=== PATIENT | female | born 1985 | race American Indian/Alaskan Native ===

== ENCOUNTER 2018-11-01 14:56 | Inpatient (IN) | payer SELFPAY ==
[2018-11-01] MEDS ORDERED: SUBLIMAZE IV ONE (16:19)
[2018-11-01] MEDS ORDERED: CERVIDIL VG ONE (16:30)
[2018-11-01] MEDS: LACTATED RINGERS 1,000 ML IV SCH (16:53)
--- NOTE | 2018-11-01 17:33 | History and Physical Report ---
History of Present Illness Date of examination: 11/01/18 Date of admission: 11/01/18 14:56 Chief complaint: IOL for oigo hydramnios History of present illness: 33 Yo at 39+5 weeks here sent over from [facility] for Oligo. Patient is a [facility] patient with hx of GDM diet control. Patient has a hx of PTD abd previously had cerclage in 2013. Patient has declined procedure secondary to her paying out of pocket. 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 Past History Past Medical History: diabetes (GDM A1) Past Surgical History: other (cerclage) Family/Genetic History: none Social history: no significant social history, . denies: smoking, alcohol abuse - Obstetrical History Expected Date of Delivery: 11/03/18 Actual Gestation: 39 Week(s) 5 Day(s) : 5 Para: 3 Hx # Term Pregnancies: 1 Number of Pregnancies: 2 Spontaneous Abortions: 1 Induced : 0 Number of Living Children: 1 Medications and Allergies Allergies Allergy/AdvReac Type Severity Reaction Status Date / Time No Known Allergies Allergy Unverified 11/01/18 16:17 Active Meds: Active Medications Lactated Ringer's (Lactated Ringers) 1,000 mls @ 125 mls/hr IV DIRECT LIZ Last Admin: 11/01/18 16:53 Dose: 125 mls/hr Documented by: Review of Systems All systems: negative - Vital Signs Vital signs: Vital Signs Pulse BP 90 133/78 11/01/18 15:22 11/01/18 15:22 Temp Pulse Resp BP Pulse Ox 98.0 F 90 14 133/78 11/01/18 16:29 11/01/18 15:22 11/01/18 16:29 11/01/18 15:22 - Physical Exam Breasts: Positive: normal Cardiovascular: Regular rate, Normal S1 Abdomen: Positive: normal appearance, normal bowel sounds Genitourinary (Female): Positive: normal external genitalia, normal perenium Vagina: Positive: normal moisture Uterus: Positive: normal size, normal contour Anus/Rectum: Positive: normal perianal skin Extremities: Positive: normal Deep Tendon Reflex Grade: Normal +2 - Obstetrical FHR: category 1 Cervical Dilatation: 0 Cervical Effacement Percentage: 50 station: 4 Uterine Contraction Pattern: Irregular Uterine Tone Measurement Phase: Resting Uterine Contraction Intensity: Mild Results All other labs normal. Assessment and Plan A/P IUP 39+5 weeks GDM -diet controlled obesity oligo at 4cm IOL for Oligo at term unfavorable cervix GBS neg cervidil to initiate induction for start
[2018-11-01] MEDS ORDERED: PHENERGAN PO PRN (17:52)
[2018-11-01] MEDS ORDERED: NARCAN 0.4 MG/1 ML IV PRN (17:52)
[2018-11-01] MEDS ORDERED: ZOFRAN IV PRN (17:52)
[2018-11-01] MEDS ORDERED: MINERAL OIL PO PRN (17:52)
[2018-11-01] MEDS ORDERED: XYLOCAINE 2% INFILTRATI ONE (17:52)
[2018-11-01] MEDS ORDERED: STADOL IV PRN (17:52)
[2018-11-01] MEDS ORDERED: BRETHINE IVP PRN (17:52)
[2018-11-01] MEDS ORDERED: BRETHINE SUB-Q PRN (17:52)
[2018-11-01] MEDS ORDERED: AMBIEN PO PRN (17:56)
[2018-11-01] MEDS ORDERED: PITOCin/NS 30 UNIT/500ML 30 UNITS/500 ML BAG IV SCH ×2 (18:00)
[2018-11-01] MEDS ORDERED: LACTATED RINGERS 1,000 ML IV SCH (18:00)
[2018-11-01] MEDS ORDERED: PITOCin/NS 20 UNIT/1000ML DRIP 20 UNITS/1,000 ML BAG IV SCH (18:00)
[2018-11-01 19:02] LABS: Basophils % (Auto) 0.5 % (0.0-1.8); Eosinophils % (Auto) 0.4 % (0.0-4.3); Hematocrit 36.1 % (30.3-42.9); Hemoglobin 11.8 gm/dl (10.1-14.3); Lymphocytes # (Auto) 1.5 K/mm3 (1.2-5.4); Mean Corpuscular HGB Conc 33 % (30-34); Mean Corpuscular Volume 81 fl (79-97); Monocytes # (Auto) 0.7 K/mm3 (0.0-0.8); Monocytes % (Auto) 12.9 % (0.0-7.3); Platelet Count 199 K/mm3 (140-440); Red Blood Count 4.46 M/mm3 (3.65-5.03); Red Cell Distribution Width 16.9 % (13.2-15.2)
[2018-11-02] MEDS: LACTATED RINGERS 1,000 ML IV SCH (05:32)
[2018-11-02] MEDS ORDERED: PEPCID IV ONE ×2 (08:42→09:30)
[2018-11-02] MEDS ORDERED: BICITRA ONE (08:43)
[2018-11-02] MEDS ORDERED: BICITRA PO ONE ×2 (08:45→09:30)
[2018-11-02] MEDS ORDERED: REGLAN IV ONE (08:45)
--- NOTE | 2018-11-02 08:50 | Progress Note ---
Assessment and Plan A/P IUP 39+6 weeks GDM -diet controlled obesity oligo at 4cm IOL for Oligo at term unfavorable cervix GBS neg NRFHT withl late decles minimal variability despite induction with cervidil and pitocin intolerance to labor discussed r/b/a of csec which include bleeding infection damage to pelvic and non pelvic organs risk of blood clots, , pain , hysterectomy and will proceed with primary csec all questions answered Subjective - Subjective Date of service: 11/02/18 Principal diagnosis: IOL for oligo Interval history: 33 Yo at 39+5 weeks here sent over from [facility] for Oligo. Patient is a [facility] patient with hx of GDM diet control. Patient has a hx of PTD abd previously had cerclage in 2013. Patient has declined procedure secondary to her paying out of pocket. 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 Patient reports: movement normal, contractions, no new complaints, no loss of fluid, no vaginal bleeding Objective - Vital Signs Vital Signs: Vital Signs - 12hr 11/01/18 11/02/18 11/02/18 22:28 00:32 01:03 Temperature 98.2 F Pulse Rate 82 85 Respiratory 18 Rate Blood Pressure 128/67 136/67 11/02/18 11/02/18 11/02/18 01:32 02:02 02:32 Temperature Pulse Rate 81 81 78 Respiratory Rate Blood Pressure 143/79 131/75 128/62 11/02/18 11/02/18 11/02/18 02:34 03:03 03:32 Temperature Pulse Rate 74 77 82 Respiratory Rate Blood Pressure 124/61 119/58 128/74 11/02/18 11/02/18 11/02/18 05:26 05:32 06:32 Temperature Pulse Rate 80 71 68 Respiratory Rate Blood Pressure 123/60 110/57 118/59 11/02/18 11/02/18 11/02/18 07:18 07:19 07:49 Temperature 98.0 F Pulse Rate 77 67 Respiratory Rate Blood Pressure 127/67 114/57 11/02/18 08:18 Temperature Pulse Rate 75 Respiratory Rate Blood Pressure 122/65 - Exam Breasts: normal Cardiovascular: Regular rate, Normal S1 Lungs: Clear to auscultation, Normal air movement Abdomen: Present: normal appearance, soft, normal bowel sounds. Absent: distention, tenderness, guarding Vulva: both: normal Uterus: Present: normal, firm, fundal height above umbilicus FHR: category 2 Cervical Dilatation: 2 Cervical Effacement Percentage: 40 station: 3 Uterine Contraction Pattern: Irregular Uterine Tone Measurement Phase: Contraction Uterine Contraction Intensity: Mild - Labs Labs: Abnormal Labs 11/01/18 16:00 MCH 27 L RDW 16.9 H [place] % (Auto) 12.9 H Laboratory Results - last 24 hr 11/01/18 11/01/18 11/01/18 15:25 16:00 16:00 WBC 5.5 RBC 4.46 Hgb 11.8 Hct 36.1 MCV 81 MCH 27 L MCHC 33 RDW 16.9 H Plt Count 199 Lymph % (Auto) 28.0 [place] % (Auto) 12.9 H Eos % (Auto) 0.4 Baso % (Auto) 0.5 Lymph # 1.5 [place] # 0.7 Eos # 0.0 Baso # 0.0 Seg Neutrophils % 58.2 Seg Neutrophils # 3.2 POC Glucose 71 Blood Type A POSITIVE Antibody Screen Negative
[2018-11-02] MEDS ORDERED: BENADRYL IV PRN (08:52)
[2018-11-02] MEDS ORDERED: DILAUDID IV PRN (08:52)
[2018-11-02] MEDS ORDERED: NARCAN 0.4 MG/1 ML IV PRN ×2 (08:52→11:00)
[2018-11-02] MEDS ORDERED: PHENERGAN PR PRN (08:52)
[2018-11-02] MEDS ORDERED: ZOFRAN IV PRN (08:52)
[2018-11-02] MEDS ORDERED: PHENERGAN PO PRN (08:52)
--- NOTE | 2018-11-02 08:54 | Anesthesia Consultation ---
Anesthesia Consult and Med Hx - Airway Anesthetic Teeth Evaluation: Good ROM Head & Neck: Adequate Mental/Hyoid Distance: Adequate Mallampati Class: Class I Intubation Access Assessment: Good - Pulmonary Exam CTA: Yes - Cardiac Exam Cardiac Exam: RRR - Pre-Operative Health Status ASA Pre-Surgery Classification: ASA2 Proposed Anesthetic Plan: Spinal - Pulmonary Hx Asthma: No - Cardiovascular System Hx Hypertension: No - Central Nervous System Hx Seizures: No Hx Psychiatric Problems: No - Endocrine Hx Renal Disease: No Hx Hypothyroidism: No Hx Hyperthyroidism: No - Hematic Hx Anemia: No Hx Sickle Cell Disease: No
--- NOTE | 2018-11-02 08:55 | Anesthesia Day of Surgery ---
Anesthesia Day of Surgery - Day of Surgery Patient Examined: Yes Patient H&P Reviewed: Yes Patient is NPO: Yes Beta Blockers: No Cardiac Clearance: No Pulmonary Clearance: No Brandon's Test: N/A
[2018-11-02] MEDS ORDERED: LACTATED RINGERS 1,000 ML IV SCH (09:00)
[2018-11-02] MEDS ORDERED: REGLAN IV NR (09:00)
[2018-11-02] MEDS ORDERED: PITOCin/NS 20 UNIT/1000ML DRIP 20 UNITS/1,000 ML BAG IV SCH ×2 (09:00→11:00)
[2018-11-02] MEDS ORDERED: ANCEF/STERILE WATER 2 GM/20 ML 2 GM/20 ML SYRINGE IV NR (09:00)
[2018-11-02] MEDS ORDERED: SODIUM CHLORIDE FLUSH SYRINGE 10 ML IV NR ×2 (09:00→11:00)
[2018-11-02] MEDS ORDERED: ZOFRAN ONE (09:05)
[2018-11-02] MEDS ORDERED: SUBLIMAZE ONE (09:05)
[2018-11-02] MEDS ORDERED: NEO SYNEPHRINE/NS Syringe(OR USE) IV ONE (09:26)
[2018-11-02] MEDS ORDERED: LACTATED RINGERS 1,000 ML ONE (09:35)
[2018-11-02] MEDS ORDERED: TORADOL ONE (10:22)
--- NOTE | 2018-11-02 10:59 | Procedure Note ---
OB Delivery Note - Delivery Date of Delivery: 11/02/18 Surgeon: JAVIER FIELDS Estimated blood loss: 500cc - Section Preop diagnosis: nonreassuring FHR tracing Postop diagnosis: same section procedure: section Disposition: PACU Complications: none Narrative: see op note - Infant A at 1 minute: 8 at 5 minutes: 9 Gender: Female (5 pounds 15 oz)
[2018-11-02] MEDS ORDERED: LANSINOH TP PRN (11:00)
[2018-11-02] MEDS ORDERED: D5LR 1,000 ML IV SCH (11:00)
[2018-11-02] MEDS ORDERED: TUCKS PAD TP PRN (11:00)
[2018-11-02] MEDS ORDERED: TYLENOL PO PRN (11:00)
[2018-11-02] MEDS ORDERED: MYLICON PO PRN (11:00)
[2018-11-02] MEDS ORDERED: TORADOL IV PRN (11:00)
[2018-11-02] MEDS ORDERED: MORPHINE IV PRN (11:00)
[2018-11-02] MEDS ORDERED: NORCO 5/325 PO PRN (11:00)
--- NOTE | 2018-11-02 11:08 | Operative Report ---
Operative Report Operative Report: Date: 11/02/18 PREOPERATIVE DIAGNOSES: 1. Intrauterine at term. 2. NRFHT minimal variability and late decels POSTOPERATIVE DIAGNOSES: 1-2 james 3. nuchal cord SURGEON: Dr. Kacie Urbina MD PROCEDURE PERFORMED: Primary low-transverse section. ANESTHESIA: Epidural. ESTIMATED BLOOD LOSS: 500 mL. COMPLICATIONS: None. FINDINGS: Female in cephalic presentation, OP position, weight 5pounds 15 ounces. Apgars were 8 at 1 minute and 9 at 5 minutes. Normal uterus, tubes, and ovaries were noted. INDICATIONS: The patient is a 33-year-old 5, para 1 female, who presented to labor and delivery in early active labor at 40 and 6/7 weeks gestation. The patient progressed to 2 cm, at which time, Pitocin was started.She had variable and late decles with pitocin. Intolerance to labor. The procedure was described to the patient in detail including possible risks of bleeding, infection, injury to surrounding organs, and possible need for further surgery. Informed consent was obtained prior to proceeding with the procedure. PROCEDURE NOTE: The patient was taken to the operating room where epidural anesthesia was found to be adequate. The patient was prepped and draped in the usual sterile fashion in the dorsal supine position with a left-hamilton tilt. A Pfannenstiel skin incision was made with the scalpel and carried through to the underlying layer of fascia using the Bovie. The fascia was incised in the midline and extended laterally using Triana scissors. Baljeet clamps were used to elevate the superior aspect of the fascial incision, which was elevated, and the underlying rectus muscles were dissected off bluntly and using Triana scissors. Attention was then turned to the inferior aspect of the fascial incision, which in similar fashion was grasped with Baljeet clamps, elevated, and the underlying rectus muscles were dissected off bluntly and using Triana scissors. The rectus muscles were dissected in the midline. The peritoneum was bluntly dissected, entered, and extended superiorly and inferiorly with good visualization of the bladder. The bladder blade was inse rted. The vesicouterine peritoneum was identified with pickups and entered sharply using Metzenbaum scissors. This incision was extended laterally and the bladder flap was created digitally. The bladder blade was reinserted. The lower uterine segment was incised in a transverse fashion using the scalpel and extended using manual traction. Clear fluid was noted. The infant was subsequently delivered atraumatically. The nose and mouth were bulb suctioned. The cord was clamped and cut. The was subsequently handed to the awaiting nursery nurse. Next, cord blood was obtained per the patients request for cord blood donation, which took several minutes to perform. Subsequent to the collection of this blood, the placenta was removed spontaneously intact with a 3-vessel cord noted. The uterus was exteriorized and cleared of all clots and debris. The uterine incision was repaired in 2 layers using 0 chromic suture. Hemostasis was visualized. hemoblast given. The uterus was returned to the abdomen. Surgicel then placed. The pelvis was copiously irrigated. The uterine incision was reexamined and was noted to be hemostatic. The rectus muscles were reapproximated in the midline using 3-0 Vicryl. The fascia was closed with 0 Vicryl, the subcutaneous layer was closed with 3-0 plain gut, and the skin was closed with 4-0 alcon needle. Sponge, lap, and instrument counts were correct x2. The patient was stable at the completion of the procedure and was subsequently transferred to the recovery room in stable condition.
[2018-11-02] MEDS ORDERED: ANUCORT-HC PR PRN (12:00)
[2018-11-02 13:13] LABS: Hematocrit 32.4 % (30.3-42.9); Hemoglobin 10.5 gm/dl (10.1-14.3); Mean Corpuscular HGB Conc 32 % (30-34); Mean Corpuscular Volume 81 fl (79-97); Red Blood Count 3.97 M/mm3 (3.65-5.03); Red Cell Distribution Width 16.7 % (13.2-15.2)
[2018-11-02 13:14] LABS: Basophils % (Auto) 0.1 % (0.0-1.8); Lymphocytes # (Auto) 1.1 K/mm3 (1.2-5.4); Lymphocytes % (Auto) 13.8 % (13.4-35.0); Monocytes # (Auto) 0.5 K/mm3 (0.0-0.8); Platelet Count 177 K/mm3 (140-440)
[2018-11-02 13:25] LABS: INR 1.06 (0.87-1.13)
[2018-11-02 13:26] LABS: Partial Thromboplastin Time 25.1 Sec. (24.2-36.6)
--- NOTE | 2018-11-02 14:35 | Post Anesthesia Evaluation ---
- Post Anesthesia Evaluation Patient Participated: Yes Airway Patent: Yes Stable Respiratory Function: Yes Nausea/Vomiting: No Temp > 96.8F: Yes Pain Manageable: Yes Adequeate Hydration: Yes Anesthesia Complications: No Block Receding Appropriately: Yes Patient on Ventilator: No
[2018-11-02] MEDS: TORADOL IV PRN ×2 (16:33→22:30)
[2018-11-02] MEDS ORDERED: MILK OF MAGNESIA PO PRN (22:00)
[2018-11-02] MEDS ORDERED: SENOKOT PO PRN (22:00)
[2018-11-03 01:45] LABS: Hematocrit 25.8 % (30.3-42.9); Hemoglobin 8.5 gm/dl (10.1-14.3)
[2018-11-03] MEDS: TORADOL IV PRN (04:23)
[2018-11-03] MEDS: FEOSOL PO SCH ×3 (09:25→22:32)
[2018-11-03] MEDS: PERCOCET 5/325 PO PRN ×3 (09:25→22:32)
[2018-11-03] MEDS: IBUPROFEN PO PRN ×3 (09:25→22:32)
--- NOTE | 2018-11-03 10:54 | Progress Note ---
Assessment and Plan A: POD1 s/p primary LTCS without complication. Anemia due to blood loss Blood glucose wnl P: Continue current care Iron supplementation Anticipate d/c on POD3 Subjective - Subjective Date of service: 11/03/18 Principal diagnosis: Post op day 1 Interval history: Pt is post op day s/p primary c/s for NRFHT. IOL for GDM and oligo. Patient reports: appetite normal, voiding normally, pain well controlled, flatus, ambulating normally Arnold: doing well Objective - Vital Signs Latest vital signs: Vital Signs Temp Pulse Resp BP BP Pulse Ox 11/03/18 08:09 97.5 F L 100 H 18 129/76 98 11/03/18 04:23 22 11/03/18 00:32 98.6 F 99 H 18 124/75 98 11/03/18 00:00 98.7 F 78 18 120/78 11/02/18 22:30 20 11/02/18 19:30 98.7 F 69 16 129/71 11/02/18 16:33 18 11/02/18 16:21 97.6 F 87 18 136/69 11/02/18 12:20 98.1 F 84 18 130/70 99 11/02/18 11:50 97.8 F 66 18 123/76 99 11/02/18 11:35 73 19 122/65 99 11/02/18 11:20 63 20 127/68 99 11/02/18 11:05 61 17 123/73 100 11/02/18 11:00 58 L 18 127/66 99 11/02/18 10:55 97.7 F 60 22 133/69 99 Intake and Output 11/02/18 11/03/18 11/03/18 23:59 07:59 15:59 Intake Total 360 600 Output Total 800 Balance -440 600 Intake: Oral 360 Intake, Free Water 600 Output: Urine 800 Indwelling Catheter 800 Other: Total, Intake Amount 360 Total, Output Amount 800 - Exam Breasts: Present: deferred, Cardiovascular: Present: Regular rate, Normal S1, Normal S2, No murmurs Lungs: Present: Clear to auscultation, Normal air movement Abdomen: Present: normal appearance, soft, normal bowel sounds Uterus: Present: normal, firm, fundal height below umbilicus Extremities: Present: normal Incision: Present: normal, dry, intact - Labs Labs: Abnormal lab results 11/02/18 11/03/18 Range/Units 12:59 00:37 Hgb 8.5 L (10.1-14.3) gm/dl Hct 25.8 L D (30.3-42.9) % MCH 26 L (28-32) pg RDW 16.7 H (13.2-15.2) % Lymph # 1.1 L (1.2-5.4) K/mm3 Seg Neutrophils % 80.1 H (40.0-70.0) %
[2018-11-03] MEDS ORDERED: M-M-R II VACCINE SUB-Q ONE (11:01)
[2018-11-03] MEDS ORDERED: BOOSTRIX IM ONE (11:01)
--- NOTE | 2018-11-04 08:06 | Progress Note ---
Assessment and Plan A: Post op day 2 s/p primary LTCS for NRFHT Anemia due to blood loss Passing flatus, VSS P: Continue current care. Iron supplementation. Anticipate d/c tomorrow. Subjective - Subjective Date of service: 11/04/18 Principal diagnosis: Post op day 2 Interval history: Pt is post op day 2 s/p primary c/s for NRFHT. IOL for GDM and oligo. She is feeling well, BG is well-controlled. Patient reports: appetite normal, voiding normally, pain well controlled, flatus, ambulating normally : doing well Objective - Vital Signs Latest vital signs: Vital Signs Temp Pulse Resp BP Pulse Ox 11/04/18 00:00 98.2 F 98 H 18 126/63 11/03/18 23:32 18 11/03/18 22:32 18 11/03/18 16:35 98.1 F 98 H 18 124/61 99 11/03/18 08:09 97.5 F L 100 H 18 129/76 98 Intake and Output 11/03/18 11/04/18 11/04/18 23:59 07:59 15:59 Intake Total 240 480 Balance 240 480 Intake: Oral 240 480 Other: Total, Intake Amount 240 480 # Voids Indwelling Catheter 1 2 - Exam Breasts: Present: normal, pain (Nipples sore) Cardiovascular: Present: Regular rate, Normal S1, Normal S2, No murmurs Lungs: Present: Clear to auscultation, Normal air movement Abdomen: Present: normal appearance, soft, normal bowel sounds Uterus: Present: normal, firm, fundal height at umbilicus Extremities: Present: normal, edema (Feet 1+) Incision: Present: normal, dry, intact
--- NOTE | 2018-11-04 08:11 | Discharge Summary ---
Providers - Providers Date of Admission: 11/01/18 14:56 Date of discharge: 11/05/18 Attending physician: JAVIER FIELDS MD Primary care physician: JAVIER FIELDS MD Hospitalization Reason for admission: induction of labor Delivery: Procedure: section, primary low transverse Incision: normal, dry, intact Other procedures: none complications: none Discharge diagnosis: IUP at term delivered baby: female Hospital course: Pt had an uncomplicated hospital course. Anemia was noted on post op day 1, and iron supplementation was initiated. Condition at discharge: Good Disposition: DC-01 TO HOME OR SELFCARE - Discharge Diagnoses (1) delivery delivered Status: Acute (2) Gestational diabetes mellitus, delivered Status: Acute Comment: Diet controlled Plan - Provider Discharge Summary Activity: no sex for 6 weeks, no heavy lifting 4 weeks, no strenuous exercise Diet: routine Instructions: routine Additional instructions: [] Smoking cessation referral if applicable(refer to patient education folder for contact #) [] Refer to [facility] Booklet Call your doctor immediately for: * Fever > 100.5 * Heavy vaginal bleeding ( >1 pad per hour) * Severe persistent headache * Shortness of breath * Reddened, hot, painful area to leg or breast * Drainage or odor from incision. * Keep incision clean and dry at all times and follow doctor's instructions regarding bathing/showering [facility] to schedule incision check for 2 weeks . - Follow up plan Follow up: JAVIER FIELDS MD [Primary Care Provider] - 14 Days
[2018-11-04] MEDS: FEOSOL PO SCH ×3 (09:11→14:00)
[2018-11-04] MEDS: PERCOCET 5/325 PO PRN (09:11)
[2018-11-04] MEDS: IBUPROFEN PO PRN (09:11)
[2018-11-04 14:04] VITALS: BP 135/71
== END 2018-11-04 16:20 | disposition home or self-care (01) | DRG 787 ==
LOC: LD 14:56 → OB 11-02 12:15
PROVIDERS: ADMIT Obstetrics & Gynecology; ATTEND Obstetrics & Gynecology
PROC: 10D00Z1 Extraction of Products of Conception, Low, Open Approach (ICD-10-PCS; principal; 2018-11-02)
PROC: 3E0P7VZ Introduction of Hormone into Female Reproductive, Via Natural or Artificial Opening (ICD-10-PCS; 2018-11-02)
PROC: 3E033VJ Introduction of Other Hormone into Peripheral Vein, Percutaneous Approach (ICD-10-PCS; 2018-11-02)
DX: O41.03X0 Oligohydramnios, third trimester, not applicable or unspecified (principal); D62 Acute posthemorrhagic anemia; O98.32 Other infections with a predominantly sexual mode of transmission complicating childbirth; E85.89 Other amyloidosis; O69.81X0 Labor and delivery complicated by cord around neck, without compression, not applicable or unspecified; O24.420 Gestational diabetes mellitus in childbirth, diet controlled; O99.214 Obesity complicating childbirth; E66.9 Obesity, unspecified; O76 Abnormality in fetal heart rate and rhythm complicating labor and delivery; O90.81 Anemia of the puerperium; Z3A.39 39 weeks gestation of pregnancy; Z37.0 Single live birth
CPT/HCPCS: 36415; 82962; 85014; 85018; 85025; 85027; 85610; 85730; 86592; 86850; 86900; 86901; 88307; G0378; J0690; J1885; J2270; J2370; J2405; J2590; J3010; J7120; J7121